=== PATIENT | male | born 1990 | race Caucasian/White ===

== ENCOUNTER 2018-07-14 11:04 | Day surgery (SDC) | payer OTHER ==
[2018-07-14] VITALS (9 sets, daily range): BP systolic 122–130; BP diastolic 77–90
--- NOTE | 2018-07-14 11:05 | ER Report ---
History and Physical Time Seen By MD: 11:05 HPI/ROS CHIEF COMPLAINT: Abdominal pain HISTORY OF PRESENT ILLNESS: The patient is a 27-year-old male with no significant past medical or surgical history who presents to the emergency department with abdominal pain. Patient states that symptoms began around 4 AM and were located in the periumbilical region. Over the course of the morning on the patient states the pain seems to be migrating to the right side. He reports nausea without vomiting. He had 2 bowel movements this morning his normal ro utine as one bowel movement a day. Denies any blood or mucus in the stool. He denies any chills or fevers. Last meal was at 2 saltine crackers this morning. REVIEW OF SYSTEMS: Constitutional: No fever, no chills. Eyes: No discharge. ENT: No sore throat. Cardiovascular: No chest pain, no palpitations. Respiratory: No cough, no shortness of breath. Gastrointestinal: Abdominal pain, nausea Genitourinary: No hematuria. Musculoskeletal: No back pain. Skin: No rashes. Neurological: No headache. Allergies: Coded Allergies: No Known Drug Allergies (Unverified , 07/14/18) Home Meds Active Scripts Hydrocodone Bit/Acetaminophen (NORCO 5-325 TABLET) 1 Each Tablet, 1 EACH PO Q4H PRN for PAIN for 3 Days, #10 TAB Prov:LANCE FLOWERS MD 07/14/18 Past Medical/Surgical History Noncontributory Constitutional Vital Sign - Last 24 Hours 07/14/18 07/14/18 07/14/18 07/14/18 11:04 11:07 11:09 11:30 Temp 97.9 Pulse ??? 47 Resp 16 B/P (MAP) 112/72 112/72 (85) 114/69 (84) Pulse Ox 94 O2 Delivery Room Air 07/14/18 07/14/18 07/14/18 11:34 12:00 12:04 Pulse 46 46 B/P (MAP) 125/80 (95) Pulse Ox 94 94 Physical Exam General/Constitutional: Patient is awake, alert, nontoxic and in no acute respiratory distress. Head: Normocephalic and atraumatic. Eyes: Conjunctival clear, Sclera are clear and anicteric. Ears:External canals are clear. Tympanic membranes are clear with normal landmarks and light reflex. Nares: No rhinorrhea or bleeding. Turbinates are pink and moist. Oropharyngeal: Mucous membranes are moist. There is no pharyngeal erythema or exudate. There are no palatal petechiae. Uvula is midline and symmetrical. Neck: Supple, no adenopathy. Cardiovascular: Heart is regular rate and rhythm without audible murmurs, rubs or gallops. Pulmonary: Lungs are clear to auscultation bilaterally. There are no wheezes, rales, or rhonchi. Chest rise is symmetrical Abdomen: Positive tenderness to McBurney's point with percussion. Positive Rosing sign. Abdomen is nondistended normal bowel sounds. Extremities: No gross deformities, No peripheral cyanosis. Able to move all 4 extremities. Neuro: Alert and oriented X3, Skin: No rashes, skin is warm dry and well perfused. Medical Decision Making Data Points Result Diagram: 07/14/18 1116 07/14/18 1116 Laboratory Hematology Test 07/14/18 11:05 07/14/18 11:16 Urine Color Yellow Urine Clarity Slightly-cloudy Urine pH 5.0 pH (4.8-9.5) Urine Specific [place] 1.028 Urine Protein 30 mg/dL (NEGATIVE) Urine Glucose (UA) Negative mg/dL (NEGATIVE) Urine Ketones 80 mg/dL (NEGATIVE) Urine Blood Negative (NEGATIVE) Urine Nitrite Negative (NEGATIVE) Urine Bilirubin Negative (NEGATIVE) Urine Urobilinogen Negative mg/dL (0.2-1.9) Urine Leukocyte Esterase Negative (NEGATIVE) Urine RBC None /HPF (0-2/HPF) Urine WBC 5 /HPF (0-5/HPF) Urine Squamous Epithelial Cells Few /LPF (</=FEW) Urine Bacteria Negative /HPF (NONE-FEW) Urine Mucus Few /HPF (NONE-FEW) Red Blood Count 5.20 M/uL (4.00-5.60) Mean Corpuscular Volume 92.0 fL (80.0-96.0) Mean Corpuscular Hemoglobin 30.7 pg (26.0-33.0) Mean Corpuscular Hemoglobin Concent 33.4 g/dL (32.0-36.0) Red Cell Distribution Width 13.4 % (11.5-14.5) Mean Platelet Volume 8.4 fL (7.2-11.1) Neutrophils (%) (Auto) 91.6 % (39.4-72.5) Lymphocytes (%) (Auto) 4.3 % (17.6-49.6) Monocytes (%) (Auto) 3.9 % (4.1-12.4) Eosinophils (%) (Auto) 0.0 % (0.4-6.7) Basophils (%) (Auto) 0.2 % (0.3-1.4) Nucleated RBC Relative Count (auto) 0.0 /100WBC Neutrophils # (Auto) 13.7 K/uL (2.0-7.4) Lymphocytes # (Auto) 0.6 K/uL (1.3-3.6) Monocytes # (Auto) 0.6 K/uL (0.3-1.0) Eosinophils # (Auto) 0.0 K/uL (0.0-0.5) Basophils # (Auto) 0.0 K/uL (0.0-0.1) Nucleated RBC Absolute Count (auto) 0.00 K/uL Sodium Level 140 mmol/L (137-145) Potassium Level 4.5 mmol/L (3.5-5.0) Chloride Level 102 mmol/L (98-107) Carbon Dioxide Level 25 mmol/L (22-30) Blood Urea Nitrogen 14 mg/dl (9-21) Creatinine 1.00 mg/dl (0.66-1.25) Glomerular Filtration Rate Calc > 60.0 Random Glucose 131 mg/dl (75-110) Calcium Level 9.8 mg/dl (8.4-10.2) Total Bilirubin 1.2 mg/dl (0.2-1.3) Aspartate Amino Transf (AST/SGOT) 48 U/L (0-35) Alanine Aminotransferase (ALT/SGPT) 36 U/L (0-56) Alkaline Phosphatase 66 U/L (0-126) C-Reactive Protein 1.0 mg/dl (<1.0) Total Protein 8.9 g/dl (6.3-8.2) Albumin 4.9 g/dl (3.5-5.0) Lipase 60 U/L (23-300) Helicobacter pylori IgG Antibody Negative (NEGATIVE) Chemistry Test 07/14/18 11:05 07/14/18 11:16 Urine Color Yellow Urine Clarity Slightly-cloudy Urine pH 5.0 pH (4.8-9.5) Urine Specific [place] 1.028 Urine Protein 30 mg/dL (NEGATIVE) Urine Glucose (UA) Negative mg/dL (NEGATIVE) Urine Ketones 80 mg/dL (NEGATIVE) Urine Blood Negative (NEGATIVE) Urine Nitrite Negative (NEGATIVE) Urine Bilirubin Negative (NEGATIVE) Urine Urobilinogen Negative mg/dL (0.2-1.9) Urine Leukocyte Esterase Negative (NEGATIVE) Urine RBC None /HPF (0-2/HPF) Urine WBC 5 /HPF (0-5/HPF) Urine Squamous Epithelial Cells Few /LPF (</=FEW) Urine Bacteria Negative /HPF (NONE-FEW) Urine Mucus Few /HPF (NONE-FEW) White Blood Count 14.9 k/uL (4.5-11.0) Red Blood Count 5.20 M/uL (4.00-5.60) Hemoglobin 16.0 g/dL (14.0-18.0) Hematocrit 47.8 % (42.0-52.0) Mean Corpuscular Volume 92.0 fL (80.0-96.0) Mean Corpuscular Hemoglobin 30.7 pg (26.0-33.0) Mean Corpuscular Hemoglobin Concent 33.4 g/dL (32.0-36.0) Red Cell Distribution Width 13.4 % (11.5-14.5) Platelet Count 227 K/uL (150-450) Mean Platelet Volume 8.4 fL (7.2-11.1) Neutrophils (%) (Auto) 91.6 % (39.4-72.5) Lymphocytes (%) (Auto) 4.3 % (17.6-49.6) Monocytes (%) (Auto) 3.9 % (4.1-12.4) Eosinophils (%) (Auto) 0.0 % (0.4-6.7) Basophils (%) (Auto) 0.2 % (0.3-1.4) Nucleated RBC Relative Count (auto) 0.0 /100WBC Neutrophils # (Auto) 13.7 K/uL (2.0-7.4) Lymphocytes # (Auto) 0.6 K/uL (1.3-3.6) Monocytes # (Auto) 0.6 K/uL (0.3-1.0) Eosinophils # (Auto) 0.0 K/uL (0.0-0.5) Basophils # (Auto) 0.0 K/uL (0.0-0.1) Nucleated RBC Absolute Count (auto) 0.00 K/uL Glomerular Filtration Rate Calc > 60.0 Calcium Level 9.8 mg/dl (8.4-10.2) Total Bilirubin 1.2 mg/dl (0.2-1.3) Aspartate Amino Transf (AST/SGOT) 48 U/L (0-35) Alanine Aminotransferase (ALT/SGPT) 36 U/L (0-56) Alkaline Phosphatase 66 U/L (0-126) C-Reactive Protein 1.0 mg/dl (<1.0) Total Protein 8.9 g/dl (6.3-8.2) Albumin 4.9 g/dl (3.5-5.0) Lipase 60 U/L (23-300) Helicobacter pylori IgG Antibody Negative (NEGATIVE) Urinalysis Test 07/14/18 11:05 Urine Color Yellow Urine Clarity Slightly-cloudy Urine pH 5.0 pH (4.8-9.5) Urine Specific [place] 1.028 Urine Protein 30 mg/dL (NEGATIVE) Urine Glucose (UA) Negative mg/dL (NEGATIVE) Urine Ketones 80 mg/dL (NEGATIVE) Urine Blood Negative (NEGATIVE) Urine Nitrite Negative (NEGATIVE) Urine Bilirubin Negative (NEGATIVE) Urine Urobilinogen Negative mg/dL (0.2-1.9) Urine Leukocyte Esterase Negative (NEGATIVE) Urine RBC None /HPF (0-2/HPF) Urine WBC 5 /HPF (0-5/HPF) Urine Squamous Epithelial Cells Few /LPF (</=FEW) Urine Bacteria Negative /HPF (NONE-FEW) Urine Mucus Few /HPF (NONE-FEW) EKG/Imaging Imaging CT scan positive for acute uncomplicated appendicitis ED Course/Re-evaluation Clinical Indication for ER IV: Hydration, IV Access ED Course 07/14/2018 11:28:16 am plan at this time will be abdominal workup. Differential diagnosis includes but is not limited to acute appendicitis, gastroenteritis, small bowel obstruction. We'll check a CT scan of the abdomen and pelvis with IV contrast. We'll give IV hydration, IV pain medication and antiemetic. Re-evaluation 07/14/2018 12:02:35 pm symptoms improving after IV Toradol. Awaiting official results of CT scan Decision to Disposition Date: Jul 14, 2018 Decision to Disposition Time: 12:22 Depart Departure Latest Vital Signs Vital Signs Date Time Temp Pulse Resp B/P (MAP) Pulse Ox O2 Delivery O2 Flow Rate FiO2 07/14/18 12:04 46 94 07/14/18 12:00 125/80 (95) 07/14/18 11:07 97.9 16 Room Air Impression: Primary Impression: Acute appendicitis Condition: Improved Disposition: Admitted from ER (to Dr Flowers) New Scripts Hydrocodone Bit/Acetaminophen (NORCO 5-325 TABLET) 1 Each Tablet 1 EACH PO Q4H PRN for PAIN for 3 Days, #10 TAB Prov: LANCE FLOWERS MD 07/14/18 Problem Qualifiers Primary Impression: Acute appendicitis Acute appendicitis type: with localized peritonitis Appendicitis gangrene presence: without gangrene Appendicitis perforation presence: without perforation Appendicitis abscess presence: without abscess Qualified Codes: K35.30 - Acute appendicitis with localized peritonitis, without perforation or gangrene JOSE WEBB MD Jul 14, 2018 11:05
[2018-07-14] MEDS ORDERED: NS(*) 0.9% 1000 ML BAG 1,000 ML IV ONE (11:22)
[2018-07-14] MEDS ORDERED: KETOROLAC 30 MG/ML VIAL IVP ONE (11:25)
[2018-07-14] MEDS ORDERED: ONDANSETRON 4 MG/2 ML VIAL IVP ONE (11:25)
[2018-07-14 11:30] LABS: PLATELET COUNT, AUTOMATED 227 K/uL (150-450)
[2018-07-14] MEDS ORDERED: IOPAMIDOL 76% 100 ML INFUS BTL 100 ML ONE (11:47)
--- NOTE | 2018-07-14 12:23 | RADIOLOGY IMAGING REPORT ---
FACILITY: [facility] PATIENT NAME: Jimenez Davidson : 1990 MR: [id number] V: [id number] EXAM DATE: ORDERING PHYSICIAN: JOSE WEBB TECHNOLOGIST: Location: [facility] [place] Patient: Jimenez Davidson : 1990 Visit/Account:[id number] Date of Sevice: 07/14/2018 CT abdomen and pelvis with IV contrast Indication: Right lower quadrant pain Comparison: None available. . Technique: Axial CT images were obtained through the abdomen and pelvis during injection of nonioni c iodinated intravenous contrast. Reformatted coronal and sagittal images were also obtained. One of the following dose optimization techniques was utilized in the performance of this exam: Automated ex posure control; adjustment of the mA and/or kV according to the patient's size; or use of an iterativ e reconstruction technique. Specific details can be referenced in the facility's radiology CT exam operational policy. Contrast: 80 ml of Isovue-370 IV contrast. Findings: Lower lung thompson: Limited views lower lung field are unremarkable. Liver: No focal parenchymal abnormality of the liver. Biliary: Gallbladder appears unremarkable as well as the intra and extra hepatic biliary system. Pancreas: Normal appearance. Spleen: Normal appearance. Adrenal glands: Unremarkable. Kidneys / retroperitoneum: No evidence of nephrolithiasis or hydronephrosis Bowel / peritoneum / mesenteries: The appendix is dilated and the right lower quadrant with mild andre appendiceal inflammatory change. There is a small amount of simple appearing free fluid in the right dependent pelvis. No free air or abscess. Lymph node assessment: No pathologic adenopathy identified. Pelvic structures: Small amount of free fluid in the pelvis. Vessels: No significant atherosclerotic calcifications seen throughout a nonaneurysmal abdominal aort a and branches. Musculoskeletal / Body wall: Mild disc narrowing L5-S1. IMPRESSION: 1. Acute appendicitis. No evidence of perforation. Results were called to Dr. JOSE WEBB at 07/14/2018 12:19 PM. Report Dictated By: Shashi Hernandez MD at 07/14/2018 12:10 PM Report E-Signed By: Shashi Hernandez MD at 07/14/2018 12:19 PM [id number]
[2018-07-14] MEDS ORDERED: PIPERACILLIN/TAZO*3.375GM VIAL 3.375 GM in NS(*) 0.9% 100 ML ADDVANT BAG 100 ML IVPB ONE (12:25)
[2018-07-14] MEDS ORDERED: FAMOTIDINE(*) 20MG/50ML PREMIX 50 ML IVPB ONE (13:00)
[2018-07-14] MEDS ORDERED: NORMOSOL R SOLN(*) 1000 ML BAG 1,000 ML IV ONE (13:00)
[2018-07-14] MEDS ORDERED: LIDOCAINE MPF 1% 5 ML VIAL ONE (13:07)
[2018-07-14] MEDS ORDERED: ONDANSETRON 4 MG/2 ML VIAL ONE (13:07)
[2018-07-14] MEDS ORDERED: fentaNYL CITR 100 MCG/2 ML AMP ONE ×2 (13:07→14:56)
[2018-07-14] MEDS ORDERED: PROPOFOL EMUL(*) 10MG/ML 20 ML 20 ML ONE (13:07)
[2018-07-14] MEDS ORDERED: DEXAMETHASONE SOD 4 MG/ML VIAL ONE (13:07)
[2018-07-14] MEDS ORDERED: SUGAMMADEX SOD 200 MG/2 ML SDV ONE (13:09)
[2018-07-14] MEDS ORDERED: ROCURONIUM BROM 10 MG/ML 10 ML ONE (13:10)
--- NOTE | 2018-07-14 13:25 | Gen Surgery History & Physical ---
History of Present Illness Chief Complaint Abdominal Pain History of Present Illness Mr. Davidson is a 27yo male who awoke at 4am today with abdominal pain. It has progressed over the day with localization to the RLQ. A CT shows findings consistent with acute appendicitis. I was asked to evaluate for management. History Home Meds No Active Prescriptions or Reported Meds Allergies: Coded Allergies: No Known Drug Allergies (Unverified , 07/14/18) Review of Systems All Systems Reviewed/Normal: Yes Exam General Appearance: Alert, Awake Neuro: No Gross deficits Eyes: PERRLA ENT: Normal Neck: No Masses Cardiovascular: Normal Rhythm & Peripheral Pulses Respiratory: No Respiratory Distress GI: Other (tender in RLQ, no generalized peritoneal signs) Musculoskeletal: No Weakness/Pain Extremities: Perfused Psych: Alert & Oriented X3, Appropriate Mood & Affect Medical Decision Making Data Points Result Diagram: 07/14/18 1116 07/14/18 1116 EKG / Imaging Imaging CT Abdomen/Pelvis: acute appendicitis without evidence of rupture. Assessment and Plan Problems: (1) Acute appendicitis Status: Acute Assessment & Plan: Mr. Davidson has a history and findings consistent with acute appendicitis. He received Zosyn in the ED and will progress directly to the OR for a laparoscopic appendectomy. I discussed the findings, surgical details, risk and benefits with the patient and his . Both express their understanding and provided signed consent to proceed. Time Spent: < 30 min Venous Thromboembolism VTE Risk Physician Assess for VTE Risk: Yes Patient's VTE Risk: Low VTE Diagnostic Test 2 Days Prior to Admit: No Antithrombotics Is Pt On Any Antithrombotics?: No Problem Qualifiers (1) Acute appendicitis: Acute appendicitis type: with localized peritonitis Appendicitis gangrene presence: without gangrene Appendicitis perforation presence: without perforation Appendicitis abscess presence: without abscess Qualified Codes: K35.30 - Acute appendicitis with localized peritonitis, without perforation or gangrene LANCE ALVAREZ MD Jul 14, 2018 13:25
[2018-07-14] MEDS ORDERED: BUPIV/EPI 0.25% 1:200,000 50ML INFIL ONE (13:43)
--- NOTE | 2018-07-14 14:54 | Post Operative Progress Note ---
Post Operative Progress Note Date: Jul 14, 2018 Time: 14:44 Surgeon: Lance Flowers MD, FACS Anesthesia: GETA Pre-Op Diagnosis: Acute Appendicitis Post-Op Diagnosis: Same Findings: Acute Non-Suppartive Appendicitis Procedure(s): Laparoscopic Appendectomy Description He was taken to the OR and placed in supine position with left arm tucked and right arm extended. After induction of anesthesia, a time-out was performed and his abdomen was prepped and draped. 0.25% Marcaine with epinephrine was injected for local anesthesia at all sites. A 5mm port was placed above the umbilicus using Optiview technique. The abdomen was insufflated to a pressure of 15mmHg. A 12mm port was placed in the RUQ and a 5mm trocar in the lower midline. He was placed in a head down and left tilt position. The appendix was easily located with moderate adhesions to the side-wall that were divided using blunt dissection. A blue load stapler was fired across the base of the appendix and a white load was fired across the appendiceal mesentery. The appendix was removed through the port in the RUQ. A ray-juanita was used to remove a small amount of fluid in the area. Both staple lines were intact without evidence of bleeding or leaking. The abdomen was desufflated and the ports removed. The fascia at the RUQ port site was closed with 0-Vicryl. The skin was closed at all sites wtih 4-0 monocryl and dermabond. He was extubated in the OR and taken to PACU in good condition. Specimen Removed:(May be N/A): Appendix Complications: None Fluids: 600ml Estimated Blood Loss: 5ml LANCE FLOWERS MD Jul 14, 2018 14:54
[2018-07-14] MEDS ORDERED: HYDR-653 PO (14:57)
[2018-07-14] MEDS ORDERED: APAP/HYDROCODONE 325/5 TAB ONE (15:27)
[2018-07-14] MEDS ORDERED: KETOROLAC TROM 10MG TAB PO ONE (17:30)
== END 2018-07-14 15:45 | disposition home or self-care (01) ==
LOC: ER 11:07 → OR 12:23
PROVIDERS: ATTEND Surgery
DX: K35.80 Unspecified acute appendicitis (principal)
CPT/HCPCS: 44970; 74177; 81001; 83690; 85025; 86140; 86677; 88304; 96374; 96375; 99284; J1100; J1885; J2001; J2405; J2543; J2704; J3010; J3490; J7030; J7050; Q9967; 82040; 82247; 82310; 82374; 82435; 82565; 82947; 84075; 84132; 84155; 84295; 84450; 84460; 84520